=== PATIENT | male | born 1995 | race Caucasian/White ===

== ENCOUNTER 2017-10-23 11:55 | Emergency (ER) | payer BC, OTHER ==
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
[2017-10-23 14:22] VITALS: BP 134/88; PULSE 65; RESP 17; TEMP 98.1
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
[2017-10-23 14:58] VITALS: O2SAT 99
== END 2017-10-23 15:02 | disposition home or self-care (01) ==
LOC: C.ER 11:55
DX: M25.561 Pain in right knee (principal); V03.00XA Pedestrian on foot injured in collision with car, pick-up truck or van in nontraffic accident, initial encounter; Y92.89 Other specified places as the place of occurrence of the external cause; Y99.0 Civilian activity done for income or pay